=== PATIENT | male | born 1965 | race Caucasian/White ===

== ENCOUNTER 2017-08-30 12:17 | Outpatient (CLI) | payer OTHER ==
[2017-08-30] MEDS ORDERED: NACL ONE (13:10)
--- NOTE | 2017-08-30 16:10 | Cat Scan Report ---
FINAL REPORT PROCEDURE: CT LUMBAR SPINE WO/W CON TECHNIQUE: Axial sections and coronal and sagittal reformatted images were viewed through the lumbar spine. Consent was obtained and pre and post IV contrast images were acquired. HISTORY: HX OF CHRONIC LUMBAR PAIN RIGHT SIDED SCIATICA COMPARISON: None FINDINGS: The partially imaged kidneys are normal. Visualized abdominal aorta is not aneurysmal. A couple of sub centimeter retroperitoneal lymph nodes are present as well as a minimally enlarged lymph node 11 millimeters in short axis for example seen on post-contrast axial image 12. There is no paraspinal abscess. There is no CT evident acute vertebral body or posterior element fracture. There is no subluxation. Juxta-articular Schmorl's nodes are present at L4/L5 more conspicuous than at L5/S1. Irregularity of the endplates are present possibly degenerative. Subtle Schmorl's node of the superior endplate of L3 is present. L5/S1 demonstrates a disc osteophyte complex eccentric to the left. This in conjunction with facet DJD produces inferior left neural foraminal stenosis. L4/L5 demonstrates a broad-based disc bulge and right posterior lateral osteophyte. Bilateral facet DJD is seen. Inferior right neural foraminal stenosis is present. L3/L4 and L2/L3 demonstrate mildly bulging annuli and mild facet DJD without stenosis. IMPRESSION: Subtly enlarged left retroperitoneal lymph node likely reactive. Suspect Schmorl's nodes with degenerative endplate changes at L4/L5 and L5/S1. Smaller Schmorl's node of the superior endplate of L3. Strictly speaking, discitis with associated osteomyelitis is not excluded at the L4/L5 and L5/S1 level. Correlate clinically and if desired if no contraindications exist obtain follow-up with most sensitive MRI with and without contrast. Degenerative peripheral stenosis as described.
== END 2017-08-30 12:18 | disposition home or self-care (01) ==
LOC: CT 12:17
PROVIDERS: ATTEND Family Medicine
DX: M48.07 Spinal stenosis, lumbosacral region (principal); M47.897 Other spondylosis, lumbosacral region; M51.46 Schmorl's nodes, lumbar region
CPT/HCPCS: 72133; Q9967